=== PATIENT | male | born 1975 | race Hispanic/Latino ===

== ENCOUNTER → 2017-09-25 | Day surgery (SDC) | payer OTHER ==
[~2017-09-25] MED LIST: DEXILANT60 MG; DONNATAL; FENTANYL CITRATE/PF 100MCG/2 ML INJ ONE; HYOSCYAMINE SULFATE 0.5 MG/ML AMP ONE; LIDOCAINE HCL 2% LOCAL INJ 5 ML SDV VIAL INJ ONE; METRONIDAZOLE500 MG PO; MIDAZOLAM HCL 2 MG/2 ML VIAL ONE; PREDNISONE20 MG PO; PROPOFOL IV EMULSION 10 MG/ML 50 ML VIAL ONE
[2017-09-25 17:13] LABS: WBC,FECAL (FECAL LACTOFERRIN) POSITIVE (NEGATIVE)
--- NOTE | 2017-09-26 09:32 | Operative Report ---
DATE OF PROCEDURE: September 25, 2017 REFERRING PHYSICIAN: Dr. Bernardino Schwab PROCEDURE PERFORMED: Colonoscopy with biopsies. INDICATIONS FOR COLONOSCOPY: Diarrhea, lower abdominal pain. MEDICATION: Patient was done under MAC. Please see anesthesiologist's note. PROCEDURE: With patient in left lateral decubitus position, flexible fiberoptic Olympus colonoscope was inserted into the rectum with ease and advanced all the way to the cecum. Pseudomembranes were noted pretty much throughout the colon. The ileocecal valve was intubated and scope was advanced into the terminal ileum. Biopsies were obtained. The scope was then withdrawn back into the colon. It was then withdrawn slowly and random biopsies were obtained from the colon. The rectum was diffusely inflamed and biopsies were obtained. The scope was then retroflexed into the distal rectum and small internal hemorrhoids were noted none of which was actively bleeding. The scope was then straightened out. It was subsequently withdrawn after securing an adequate stool specimen that was sent for the appropriate stool studies. Patient tolerated the procedure well. IMPRESSIONS 1. Diffuse pseudomembranous colitis. 2. Proctitis, biopsies obtained. 3. Internal hemorrhoids none actively bleeding. PLAN 1. Follow up histology. 2. Follow up stool studies. 3. Start vancomycin 500 mg 1 p.o. q.6 h. 4. Continue Flagyl 500 mg p.o. q.6 h. Job#: [id number] CQ
[2017-09-27 08:57] LABS: C DIFFICILE TOXIN A&B AMP PROB **POSITIVE** (NEGATIVE)
== END | disposition home or self-care (01) ==
LOC: OR 12:04
PROVIDERS: ATTEND Internal Medicine Gastroenterology
DX: A04.72 Enterocolitis due to Clostridium difficile, not specified as recurrent (principal); K62.89 Other specified diseases of anus and rectum; K64.8 Other hemorrhoids; R03.0 Elevated blood-pressure reading, without diagnosis of hypertension; Z88.0 Allergy status to penicillin; Z01.810 Encounter for preprocedural cardiovascular examination; Z68.26 Body mass index [BMI] 26.0-26.9, adult; Z80.0 Family history of malignant neoplasm of digestive organs
CPT/HCPCS: 45380; 83630; 83993; 87045; 87177; 87328; 87493; 93005; J1980; J2001; J2250; 45378

== ENCOUNTER 2019-09-21 20:03 | Emergency (ER) | payer OTHER ==
[~2019-09-21] VITALS: Ht 167.6 cm; Wt 79.4 kg
[~2019-09-21 20:03] MED LIST changes: -FENTANYL CITRATE/PF 100MCG/2 ML INJ ONE; -HYOSCYAMINE SULFATE 0.5 MG/ML AMP ONE; -LIDOCAINE HCL 2% LOCAL INJ 5 ML SDV VIAL INJ ONE; -MIDAZOLAM HCL 2 MG/2 ML VIAL ONE; -PROPOFOL IV EMULSION 10 MG/ML 50 ML VIAL ONE
[2019-09-21] MEDS ORDERED: PANTOPRAZOLE 40 MG 10ML VIAL IV STA (20:23)
[2019-09-21] MEDS ORDERED: DICYCLOMINE HCL 20 MG/2 ML VIAL IM ONE (20:30)
--- NOTE | 2019-09-21 20:32 | Emergency Department Note ---
History of Present Illnes History of Present Illness Chief Complaint: Abdominal Complaints History of Present Illness This is a 44 year old male REPORTS ABDOMINAL PAIN X2 HRS; LBM AT 1900; PT DENIES ANY N/V OR DIARRHEA, DENIES ANY BURNING WITH URINATION . Historian: Patient, Family Member Onset (how long ago): hour(s) (2) Location: EPIGASTRIC AREA Quality: EPIGASTRIC PAIN Severity: moderate Onset quality: sudden Duration (how long): hour(s) (2) Timing of current episode: constant Progression: waxing and waning Chronicity: new Context: recent illness Relieving factors: none Exacerbating factors: none Associated symptoms: diaphoresis Treatments prior to arrival: none Past Medical/Family History Physician Review I have reviewed the patient's past medical and family history. Any updates have been documented here. Past Medical History Recent Fever: No Clinical Suspicion of Infectio: No New/Unexplained Change in Ment: No Past Medical History: None Past Surgical History: Cholecysctectomy Social History Smoking Cessation: Never Smoker Alcohol Use: Occasional (7 BEERS ON THURSDAY) Any Illegal Drug Use: No Family History Family history of heart diseas: No Other Last Tetanus: UTD Review of Systems Review of Systems Constitutional: no symptoms EENTM: no symptoms Cardiovascular: no symptoms Respiratory: no symptoms Gastrointestinal: as per HPI Genitourinary: no symptoms Musculoskeletal: no symptoms Neurological: no symptoms Psychological: no symptoms Endocrine: no symptoms Hematological/Lymphatic: no symptoms Review of other systems All other systems reviewed and negative. Physical Exam Related Data Allergies: Uncoded Allergies: PENICILLIN (Allergy, Unknown, 09/24/17) Triage Vital Signs Vital Signs Date Time Temp Pulse Resp B/P (MAP) Pulse Ox O2 Delivery O2 Flow Rate FiO2 09/21/19 20:23 97.8 79 17 157/92 96 Vital signs reviewed: Yes Physical Exam CONSTITUTIONAL Constitutional: well-developed, well-nourished, distressed (MILD) HENT HENT: normocephalic, atraumatic, oropharynx clear/moist, nose normal HENT L/R: left ext ear normal, right ext ear normal EYES Eyes: PERRL, conjunctivae normal NECK Neck: ROM normal PULMONARY Pulmonary: effort normal, breath sounds normal CARDIOVASCULAR Cardiovascular: regular rhythm, heart sounds normal, capillary refill normal, normal rate GASTROINTESTINAL Abdominal: soft, bowel sounds normal, tender (MODERATE TO EPIGASTRIC AREA); guarding, rebound, left CVA tenderness, right CVA tenderness GENITOURINARY Genitourinary: exam deferred SKIN Skin: warm, dry MUSCULOSKELETAL Musculoskeletal: ROM normal NEUROLOGICAL Neurological: alert, oriented x 3, no gross motor or sensory deficits PSYCHOLOGICAL Psychological: mood/affect normal, judgement normal Results Laboratory Laboratory Laboratory Tests Test 09/21/19 20:31 White Blood Count 10.92 x10e3/uL (4.8-10.8) Red Blood Count 5.20 x10e6/uL (4.3-5.7) Hemoglobin 15.3 g/dL (14.0-18.0) Hematocrit 47.2 % (38.2-49.6) Mean Corpuscular Volume 90.8 fL (81-99) Mean Corpuscular Hemoglobin 29.4 pg (28-32) Mean Corpuscular Hemoglobin Concent 32.4 g/dL (31-35) Red Cell Distribution Width 13.6 % (11.7-14.4) Platelet Count 378 x10e3/uL (140-360) Neutrophils (%) (Auto) 64.7 % (38.7-80.0) Lymphocytes (%) (Auto) 24.1 % (18.0-39.1) Monocytes (%) (Auto) 8.4 % (4.4-11.3) Eosinophils (%) (Auto) 1.8 % (0.0-6.0) Basophils (%) (Auto) 0.5 % (0.0-1.0) Neutrophils # (Auto) 7.1 (2.1-6.9) Lymphocytes # (Auto) 2.6 (1.0-3.2) Monocytes # (Auto) 0.9 (0.2-0.8) Eosinophils # (Auto) 0.2 (0.0-0.4) Basophils # (Auto) 0.1 (0.0-0.1) Absolute Immature Granulocyte (auto 0.05 x10e3/uL (0-0.1) Urine Color Yellow (YELLOW) Urine Clarity Clear (CLEAR) Urine pH 5.5 (5 - 7) Urine Specific [place] 1.030 (1.010-1.025) Urine Protein Negative (NEGATIVE) Urine Glucose (UA) Negative (NEGATIVE) Urine Ketones Negative (NEGATIVE) Urine Blood Trace (NEGATIVE) Urine Nitrite Negative (NEGATIVE) Urine Bilirubin Negative (NEGATIVE) Urine Urobilinogen 0.2 mg/dL (0.2 - 1) Urine Leukocyte Esterase Negative (NEGATIVE) Urine RBC 0-5 /HPF (0-5) Urine WBC None /HPF (0-5) Urine Epithelial Cells Few /LPF (NONE) Urine Bacteria None /HPF (NONE) Sodium Level 142 mmol/L (136-145) Potassium Level 4.0 mmol/L (3.5-5.1) Chloride Level 100 mmol/L (98-107) Carbon Dioxide Level 29 mmol/L (22-29) Anion Gap 17.0 mmol/L (8-16) Blood Urea Nitrogen 17 mg/dL (7-26) Creatinine 1.17 mg/dL (0.72-1.25) Estimat Glomerular Filtration Rate > 60 ML/MIN (60-) BUN/Creatinine Ratio 15 (6-25) Glucose Level 129 mg/dL (74-118) Calcium Level 10.4 mg/dL (8.4-10.2) Total Bilirubin 0.4 mg/dL (0.2-1.2) Aspartate Amino Transf (AST/SGOT) 29 IU/L (5-34) Alanine Aminotransferase (ALT/SGPT) 72 IU/L (0-55) Alkaline Phosphatase 97 IU/L (40-150) Creatine Kinase 62 IU/L (30-200) Creatine Kinase MB 0.70 ng/mL (0-5.0) Troponin I 0.020 ng/mL (0-0.300) Total Protein 8.4 g/dL (6.5-8.1) Albumin 4.7 g/dL (3.5-5.0) Globulin 3.7 g/dL (2.3-3.5) Albumin/Globulin Ratio 1.3 (0.8-2.0) Amylase Level 92 U/L (25-125) Lipase 20 U/L (8-78) Lab results reviewed: Yes Imaging Imaging results reviewed: Yes Impressions Patient Name: ASHLEY PHILLIPS JR MR #: [id number] : 1975 Age/Sex: 44/M Req #: [id number] Adm Physician: Ordered by: DURGA CACERES MD Report #: [id number] Location: ER Room/Bed: __ Procedure: [id number] DX/ABDOMEN ACUTE SERIES W/PA CXR Exam Date: 09/21/19 Exam Time: 2049 REPORT STATUS: Signed Acute Abdominal Series CPT CODE: 36534 INDICATION: Abdominal pain. COMPARISON: None. FINDINGS: Single view of the chest shows mild eventration of the right diaphragm and discoid atelectasis of the left lower lobe. Cardiomediastinal silhouette is normal. Supine and erect views of the abdomen: Medical Devices: Cholecystectomy clips in the right upper quadrant. Bowel: Unremarkable bowel gas pattern. There is little small bowel air. The stomach is distended with fluid and air. Small amount of stool and air in the right colon. Free air: None Abdominal calcifications: None over the renal shadows or along the expected course of the ureters. Organomegaly: None Bones: There is sclerosis and cortical cuffing of the right ischial tuberosity suggestive of stress reaction. IMPRESSION: 1. Fluid and air distention of the stomach with little small and large bowel air. Findings are suggestive of ileus. 2. Mild eventration of the right diaphragm of uncertain chronicity. Discoid atelectasis of the left lower lobe. 3. Cholecystectomy. Signed by: Dr. Umair Sanford MD on 09/21/2019 9:20 PM Dictated By: UMAIR SANFORD MD 19 Transcribed By: KRISTA on 09/21/192119 COPY TO: DURGA CACERES MD~ Procedure: [id number] CT/CT ABDOMEN/PELVIS W Exam Date: 09/21/19 Exam Time: 2219 REPORT STATUS: Signed CT Abdomen And Pelvis with Intravenous Contrast INDICATION: ^ABD PAIN, FINDINGS OF KUB OF POSSIBLE ILEUS ^[id number] ^2219 ^Y TECHNIQUE: Thin collimation axial images obtained from the diaphragm to the level of the pubic symphysis following the uneventful administration of 100 cc of low osmolar, nonionic intravenous contrast. Oral contrast was also administered. Dose reduction techniques used: Automated exposure control, adjustment of the mAs and/or kVp according to patient size, standardized low-dose protocol, and/or iterative reconstruction technique. RADIATION DOSE: Total DLP: 602.06 mGy*cm Estimated effective dose: (DLP x 0.015 x size factor) mSv CTDIvol has been reviewed. It is below the limits set by the Radiation Protocol Committee (RPC). COMPARISON: None. ABDOMEN FINDINGS: Lung Bases: Small foci of microatelectasis in the posterior right costophrenic angle. Mild eventration of the right diaphragm with overlying subsegmental atelectasis. The distal esophagus is distended with enteric contrast. No hiatal hernia. Liver: Decreased attenuation. No evidence for mass. Gallbladder: Absent. No biliary ductal dilatation. Pancreas: Diffuse mild atrophy. No mass or ductal dilatation. Spleen: Normal in size. No evidence of mass Adrenal Glands: No evidence for mass. Kidneys: Right: Normal enhancement. No soft tissue mass. No hydronephrosis. Left: Normal enhancement. No soft tissue mass. No hydronephrosis. Lymph Nodes: No enlarged abdominal or periaortic lymph nodes. Aorta: Normal in diameter. PELVIS FINDINGS: Bowel: Stomach: Distended with enteric contrast, air, and small amount of food. No mural thickening. No perigastric air. Small Bowel: Enteric contrast present throughout. No mural thickening or dilatation. Large Bowel: No enteric contrast. No mural thickening or pericolonic inflammation. Appendix: Normal. Bladder: Normal. The prostate gland is mildly enlarged. Peritoneum/retroperitoneum: No free fluid, fluid collection, or free air. Bones: Flowing osteophytes of the lower thoracic spine suggestive of DISH. Degenerative changes of the thoracic spine. No compression deformities. Soft tissues: Unremarkable. IMPRESSION: 1. No evidence of small or large bowel obstruction. Dilatation of the stomach without obstructing mass. Please correlate with history of gastroparesis. 2. Steatosis. 3. Cholecystectomy. No bile duct dilatation. Signed by: Dr. Umair Sanford MD on 09/21/2019 10:38 PM Dictated By: UMAIR SANFORD MD 37 COPY TO: DURGA CACERES MD~ Procedures 12 Lead ECG Interpretation Lookback Coordinator: Interpreted by ED physician Date: Sep 21, 2019 Time: 20:32 Rhythm: sinus rhythm Rate: normal BPM: 79 QRS axis: normal ST segments normal: Yes T waves normal: Yes Other findings: no other findings Clinical Impression: normal ECG Critical Care Time Subsequent provider I assumed direction of critical care for this patient from another provider of my specialty. Assessment & Plan Reassessment Reassessment time: 22:51 Reassessment PT RELIEVED AT THIS TIME Assessment & Plan Final Impression: (1) GASTRITIS, UNSPECIFIED, WITHOUT BLEEDING Assessment & Plan PT WITH UPPER ABD PAIN FOR 2 HOURS, H/O CHOLECYSTECTOMY IN THE PAST CBC, CMP, AMYLASE, LIPASE, UA, ACUTE ABD SERIES, EKG, CARDIAC ENZYMES , UA O RDERED TO EVAL FOR MYOCARDIAL INFARCTION, UTI, PANCREATITIS, BOWEL OBSTRUCTION, ELECTROLYTE ABNORMALITY PROTONIX 40 MG IV ORDERED BENTYL 20 MG IM ORDERED PT DISCHARGED TO FOLLOW UP WITH GI. REFERRED TO DR Amilcar EDUARDO PRESCRIPTIONS BENTYL 20 MG PO Q 6 HOURS PRN ABD PAIN PROTONIX 40 MG IV DAILY BLAND DIET Depart Disposition: HOME, SELF-CARE Last Vital Signs Date Time Temp Pulse Resp B/P (MAP) Pulse Ox O2 Delivery O2 Flow Rate FiO2 09/21/19 20:23 97.8 79 17 157/92 96 Home Meds Reported Medications Dexlansoprazole (DEXILANT) 60 Mg Cap. THERAPEUTIC INTERCHANGE WITH PROTONIX [facility] 09/24/17 [] No Conflict Check 09/24/17 Metronidazole (METRONIDAZOLE) 500 Mg Tablet, 500 MG PO, TAB 09/24/17 Prednisone (PREDNISONE) 20 Mg Tab, 20 MG PO, TAB 09/24/17 Medications in the ED Pantoprazole Sodium 40 mg NOW STAT IV ; Start 09/21/19 at 20:23; Stop 09/21/19 at 20:25; Status DC Dicyclomine HCl 20 mg ONCE ONCE IM ; Start 09/21/19 at 20:30; Stop 09/21/19 at 20:31; Status DC DURGA CACERES MD Sep 21, 2019 20:32
[2019-09-21 20:45] LABS: BASOPHILS # (AUTO) 0.1 (0.0-0.1); BASOPHILS % 0.5 % (0.0-1.0); EOSINOPHILS # (AUTO) 0.2 (0.0-0.4); EOSINOPHILS % 1.8 % (0.0-6.0); HEMATOCRIT 47.2 % (38.2-49.6); HEMOGLOBIN 15.3 g/dL (14.0-18.0); LYMPHOCYTES # (AUTO) 2.6 (1.0-3.2); LYMPHOCYTES % 24.1 % (18.0-39.1); MEAN CORPUSCULAR HEMOGLOBIN 29.4 pg (28-32); MEAN CORPUSCULAR HGB CONC 32.4 g/dL (31-35); MEAN CORPUSCULAR VOLUME 90.8 fL (81-99); MONOCYTES # (AUTO) 0.9 (0.2-0.8); MONOCYTES % 8.4 % (4.4-11.3); NEUTROPHILS # (AUTO) 7.1 (2.1-6.9); NEUTROPHILS % 64.7 % (38.7-80.0); PLATELET COUNT 378 x10e3/uL (140-360); RED CELL DISTRIBUTION WIDTH 13.6 % (11.7-14.4)
[2019-09-21 21:00] LABS: AMYLASE 92 U/L (25-125); LIPASE 20 U/L (8-78)
[2019-09-21 21:02] LABS: ALANINE AMINOTRANSFERASE 72 IU/L (0-55); ALBUMIN 4.7 g/dL (3.5-5.0); ALBUMIN/GLOBULIN RATIO 1.3 (0.8-2.0); ALKALINE PHOSPHATASE 97 IU/L (40-150); BILIRUBIN,URINE NEGATIVE (NEGATIVE); BLOOD UREA NITROGEN 17 mg/dL (7-26); BUN/CREATININE RATIO 15 (6-25); CALCIUM 10.4 mg/dL (8.4-10.2); CARBON DIOXIDE 29 mmol/L (22-29); CHLORIDE 100 mmol/L (98-107); CLARITY,URINE CLEAR (CLEAR); COLOR,URINE YELLOW (YELLOW); CREATINE KINASE 62 IU/L (30-200); CREATININE, SERUM 1.17 mg/dL (0.72-1.25); EST GLOMERULAR FILTRATION RATE > 60 ML/MIN (60-); GLUCOSE 129 mg/dL (74-118); LEUKOCYTE ESTERASE ,URINE NEGATIVE (NEGATIVE); NITRITE,URINE NEGATIVE (NEGATIVE); PROTEIN,URINE DIPSTICK NEGATIVE (NEGATIVE); SODIUM 142 mmol/L (136-145); URINE UROBILINOGEN 0.2 mg/dL (0.2 - 1)
[2019-09-21 21:03] LABS: KETONES,URINE NEGATIVE (NEGATIVE)
[2019-09-21 21:04] LABS: EPITHELIAL CELLS,URINE FEW /LPF; RBC,URINE 0-5 /HPF (0-5)
--- NOTE | 2019-09-21 21:23 | Diagnostic Imaging Report ---
Acute Abdominal Series CPT CODE: 41056 INDICATION: Abdominal pain. COMPARISON: None. FINDINGS: Single view of the chest shows mild eventration of the right diaphragm and discoid atelectasis of the left lower lobe. Cardiomediastinal silhouette is normal. Supine and erect views of the abdomen: Medical Devices: Cholecystectomy clips in the right upper quadrant. Bowel: Unremarkable bowel gas pattern. There is little small bowel air. The stomach is distended with fluid and air. Small amount of stool and air in the right colon. Free air: None Abdominal calcifications: None over the renal shadows or along the expected course of the ureters. Organomegaly: None Bones: There is sclerosis and cortical cuffing of the right ischial tuberosity suggestive of stress reaction. IMPRESSION: 1. Fluid and air distention of the stomach with little small and large bowel air. Findings are suggestive of ileus. 2. Mild eventration of the right diaphragm of uncertain chronicity. Discoid atelectasis of the left lower lobe. 3. Cholecystectomy. Signed by: Dr. Emilee Sanford MD on 09/21/2019 9:20 PM
[2019-09-21] MEDS ORDERED: DIATRIZOATE MEGL/DIATRIZOA SOD 30 ML BTL PO ONE (21:42)
[2019-09-21] MEDS ORDERED: SODIUM CHLORIDE 0.9% 50ML 50 ML ONE (22:36)
[2019-09-21] MEDS ORDERED: IOPAMIDOL 370 MG/ML 200 ML INFUS..BTL INJ ONE (22:36)
--- NOTE | 2019-09-21 22:41 | Diagnostic Imaging Report ---
CT Abdomen And Pelvis with Intravenous Contrast INDICATION: ^ABD PAIN, FINDINGS OF KUB OF POSSIBLE ILEUS ^[id number] ^2220 ^Y TECHNIQUE: Thin collimation axial images obtained from the diaphragm to the level of the pubic symphysis following the uneventful administration of 100 cc of low osmolar, nonionic intravenous contrast. Oral contrast was also administered. Dose reduction techniques used: Automated exposure control, adjustment of the mAs and/or kVp according to patient size, standardized low-dose protocol, and/or iterative reconstruction technique. RADIATION DOSE: Total DLP: 602.06 mGy*cm Estimated effective dose: (DLP x 0.015 x size factor) mSv CTDIvol has been reviewed. It is below the limits set by the Radiation Protocol Committee (RPC). COMPARISON: None. ABDOMEN FINDINGS: Lung Bases: Small foci of microatelectasis in the posterior right costophrenic angle. Mild eventration of the right diaphragm with overlying subsegmental atelectasis. The distal esophagus is distended with enteric contrast. No hiatal hernia. Liver: Decreased attenuation. No evidence for mass. Gallbladder: Absent. No biliary ductal dilatation. Pancreas: Diffuse mild atrophy. No mass or ductal dilatation. Spleen: Normal in size. No evidence of mass Adrenal Glands: No evidence for mass. Kidneys: Right: Normal enhancement. No soft tissue mass. No hydronephrosis. Left: Normal enhancement. No soft tissue mass. No hydronephrosis. Lymph Nodes: No enlarged abdominal or periaortic lymph nodes. Aorta: Normal in diameter. PELVIS FINDINGS: Bowel: Stomach: Distended with enteric contrast, air, and small amount of food. No mural thickening. No perigastric air. Small Bowel: Enteric contrast present throughout. No mural thickening or dilatation. Large Bowel: No enteric contrast. No mural thickening or pericolonic inflammation. Appendix: Normal. Bladder: Normal. The prostate gland is mildly enlarged. Peritoneum/retroperitoneum: No free fluid, fluid collection, or free air. Bones: Flowing osteophytes of the lower thoracic spine suggestive of DISH. Degenerative changes of the thoracic spine. No compression deformities. Soft tissues: Unremarkable. IMPRESSION: 1. No evidence of small or large bowel obstruction. Dilatation of the stomach without obstructing mass. Please correlate with history of gastroparesis. 2. Steatosis. 3. Cholecystectomy. No bile duct dilatation. Signed by: Dr. Emilee Sanford MD on 09/21/2019 10:38 PM
== END 2019-09-21 23:05 | disposition home or self-care (01) ==
LOC: ER 20:03
DX: R10.13 Epigastric pain (principal); K29.70 Gastritis, unspecified, without bleeding
CPT/HCPCS: 36415; 74022; 74177; 80053; 81001; 82150; 82550; 82553; 83690; 84484; 85025; 93005; 99284; C9113; J0500; Q9967